=== PATIENT | female | born 1985 | race Caucasian/White ===

== ENCOUNTER 2017-04-02 07:47 | Inpatient (IN) | payer OTHER ==
[2017-04-02] MEDS ORDERED: Oxytocin in LR* 20 UNITS/1,000 ML BAG IVPB SCH ×2 (11:00→17:00)
[2017-04-02] MEDS ORDERED: OBEPIDURAL* 250 ML ONE (12:04)
[2017-04-02 12:32] LABS: Hematocrit 42 % (35-47); Hemoglobin 13.7 g/dl (12.0-16.0); Mean Corpuscular HGB Conc 32 g/dl (31-36); Mean Corpuscular Hemoglobin 28 pg (27-31); Mean Corpuscular Volume 87 fL (80-97); Red Blood Count 4.89 10^6/ul (4.0-5.4); Red Cell Distribution Width 14 % (10.5-15); White Blood Count 17.8 10^3/ul (3.5-10.8)
[2017-04-02 12:48] LABS: Add Diff/Slide Review? Slide Review Added; Comments Flag Yes
[2017-04-02] MEDS ORDERED: Phenylephrine IV* 40 MCG/ML 10 ML SYRINGE IV PUSH PRN ×2 (13:19)
[2017-04-02] MEDS ORDERED: Sodium Citrate/Citric Acid* 15 ML UDC PO PRN (13:19)
[2017-04-02] MEDS ORDERED: EPHEDrine (Pressors)* 50 MG/ML VIAL IV PUSH PRN ×2 (13:19)
[2017-04-02] MEDS ORDERED: Famotidine TAB* 20 MG PO PRN (13:19)
[2017-04-02] MEDS ORDERED: OBEPIDURAL* 250 ML EPIDURAL SCH (14:00)
[2017-04-02] MEDS ORDERED: ceFOXitin 2 GM IVPREMIX* 2 GM/50 ML BAG ONE (14:54)
[2017-04-02] MEDS ORDERED: Lidocaine 2% PF* 10 ML AMP ONE (15:01)
[2017-04-02] MEDS ORDERED: fentaNYL* 50 MCG/ML 2 ML VIAL (100 MCG VIAL) IV PRN (15:56)
[2017-04-02] MEDS ORDERED: Ondansetron INJ* 2 MG/ML VIAL IV PRN ×2 (15:56→16:07)
[2017-04-02] MEDS ORDERED: Ketorolac INJ* 30 MG/ML 1 ML VIAL IV PRN (15:56)
[2017-04-02] MEDS ORDERED: OXYTOCIN* 10 UNITS/ML 1 ML VIAL ONE ×2 (15:58→16:05)
[2017-04-02] MEDS ORDERED: Morphine PF AMP (0.5MG/ML)* 5 MG/10 ML AMP ONE (15:59)
[2017-04-02] MEDS ORDERED: Naloxone* 2 MG in NS 0.9% 250 ML* 250 ML IV PRN (16:07)
[2017-04-02] MEDS ORDERED: oxyCODONE/Acetamin 5/325 MG* TAB PO PRN (16:07)
[2017-04-02] MEDS ORDERED: HYDROcodone/ACETAMIN 5-325 MG* 1 TAB PO PRN (16:07)
[2017-04-02] MEDS ORDERED: Naloxone* 0.4 MG/ML 1 ML VIAL IV PRN (16:07)
[2017-04-02] MEDS ORDERED: diPHENhydraMINE IV* 50 MG/ML 1 ml VIAL (BENADRYL) IV PRN (16:07)
[2017-04-02] MEDS ORDERED: DiMENhydriNATE IV* 50 MG/ML VIAL IV PUSH PRN (16:07)
[2017-04-02] MEDS ORDERED: Witch Hazel PAD* JAR TOPICAL PRN (16:59)
[2017-04-02] MEDS ORDERED: Dibucaine 1% 28.35 GM TUBE PR PRN (16:59)
[2017-04-02] MEDS ORDERED: Glycerin ADULT SUPP PR PRN (16:59)
[2017-04-02] MEDS ORDERED: Acetaminophen TAB* 325 MG PO PRN (16:59)
[2017-04-02] MEDS: Ketorolac INJ* 30 MG/ML 1 ML VIAL IV PRN ×2 (17:30→23:37)
[2017-04-02] MEDS: Simethicone CHEW TAB* 80 MG PO SCH ×3 (18:27→22:02)
[2017-04-02] MEDS ORDERED: Lidocaine 1% MPF* 2 ML VIAL ONE (19:06)
[2017-04-02] MEDS: Docusate CAP* 100 MG PO SCH (22:01)
--- NOTE | 2017-04-03 02:11 | OP ---
DATE OF OPERATION: 04/02/17 - ROOM #103 DATE OF : 81 SURGEON: Edith Tracey MD ICT BUSINESS ANALYST: Toshia Rocha CNM ANESTHESIOLOGIST: Dr. Weir. ANESTHESIA: Epidural. PRE-OP DIAGNOSES: Intrauterine growth restriction, 38-6/7 weeks, category II heart tracing, remote from delivery. POST-OP DIAGNOSES: Intrauterine growth restriction, 38-6/7 weeks, category II heart tracing, remote from delivery, delivered. OPERATIVE PROCEDURE: Primary low transverse section. ESTIMATED BLOOD LOSS: 600 cc. URINE OUTPUT: 200 cc of yellow urine. FLUIDS: 1300 cc of crystalloid. FINDINGS: Revealed a vertex female infant with 's 9 at 1 minute, 9 at 5 minutes; weight was 5 pounds 14 ounces. No nuchal cord. Placenta was sclerotic and small disc, but cord had a normal appearance with 3 vessel. Normal-appearing tubes and ovaries. COMPLICATIONS: None apparent. DISPOSITION: Stable to recovery room. DESCRIPTION OF PROCEDURE: The patient was placed in dorsal lithotomy position. Abdomen was prepped and draped in a sterile standard fashion. Anesthesia was tested to appropriate level. Incision was made 2 fingerbreadths above the pubic symphysis. This was carried down through the fascia. Fascia was scored in the midline. Fascial incision was extended laterally and superiorly using curved Dominguez scissors. The fascia was from the rectus muscle with blunt and sharp dissection. The peritoneum was then entered sharply with Metzenbaum scissors. The peritoneal incision was extended bluntly. A bladder blade was inserted. The lower uterine segment was identified, tented up with an Allis, and incision was made with scalpel. This was carried down through the fluid and fluid was noted to be clear. A lower uterine segment incision was then extended laterally and superiorly using bandage scissors. The infant was delivered LOT, normal nuchal cord, anterior, then posterior shoulder delivered. Cord was then doubly clamped and cut. The was vigorous . The infant was handed off to awaiting lobby concierge. Appropriate cord blood was obtained. Placenta was then manually extracted and noted to have a small placental base and to be sclerotic. The cord was noted to have normal aperture with 3 vessels in nature. The uterus was exteriorized. The cavity was wiped clean and noted to be free of any membranes or placental tissue. Normal tubes and ovaries were noted. The incision itself was then reapproximated in 2 layers , 1st layer running locked, 2nd layer running imbricated 0 Vicryl. Uterus was returned intra-abdominally. Colic gutters were lavaged. Peritoneum was then grasped with Rosaura and the peritoneum was reapproximated using 2-0 Vicryl in a running fashion. Subfascial areas were visualized and noted to be hemostatic and the fascia was then reapproximated using 0 Vicryl x2 in a running fashion. Subcuticular fat stitch was applied using 2-0 Vicryl in an interrupted fashion. The skin was then reapproximated using 4-0 Vicryl in a subcuticular fashion and Mastisol and Steri's were applied. All sponge, needle, and instrument blade counts were correct throughout the case. The patient tolerated the procedure well and went to recovery room in stable condition. [id number]/[facility] #: [id number] RYAN
[2017-04-03] MEDS: Ketorolac INJ* 30 MG/ML 1 ML VIAL IV PRN ×2 (05:46→12:10)
[2017-04-03 06:19] LABS: Hematocrit 37 % (35-47); Hemoglobin 11.9 g/dl (12.0-16.0); Mean Corpuscular HGB Conc 32 g/dl (31-36); Mean Corpuscular Hemoglobin 28 pg (27-31); Mean Corpuscular Volume 86 fL (80-97); Mean Platelet Volume 10 um3 (7.4-10.4); Red Blood Count 4.28 10^6/ul (4.0-5.4); Red Cell Distribution Width 13 % (10.5-15); White Blood Count 17.1 10^3/ul (3.5-10.8)
[2017-04-03] MEDS ORDERED: oxyCODONE/Acetamin 5/325 MG* TAB PO PRN (08:00)
[2017-04-03] MEDS: Simethicone CHEW TAB* 80 MG PO SCH ×4 (08:58→22:27)
[2017-04-03] MEDS: oxyCODONE/Acetamin 5/325 MG* TAB PO PRN ×4 (08:58→22:26)
[2017-04-03] MEDS: Docusate CAP* 100 MG PO SCH ×3 (08:58→22:27)
[2017-04-03] MEDS ORDERED: Ferrous Gluconate TAB* 324 MG TAB PO SCH (09:00)
[2017-04-03] MEDS: Ibuprofen TAB* 600 MG PO PRN (18:16)
[2017-04-04 07:58] VITALS: BP 128/80
[2017-04-04] MEDS: Simethicone CHEW TAB* 80 MG PO SCH (09:15)
[2017-04-04] MEDS: Docusate CAP* 100 MG PO SCH (09:15)
[2017-04-04] MEDS: Ibuprofen TAB* 600 MG PO PRN (12:06)
[2017-04-04] MEDS: oxyCODONE/Acetamin 5/325 MG* TAB PO PRN (12:07)
== END 2017-04-04 13:49 | disposition home or self-care (01) | DRG 540 ==
LOC: MCHOBOUT 07:47 → MCHOB 10:14
PROVIDERS: ADMIT Obstetrics & Gynecology; ATTEND Obstetrics & Gynecology
PROC: 10D00Z1 Extraction of Products of Conception, Low, Open Approach (ICD-10-PCS; principal; 2017-04-02 15:13)
DX: O76 Abnormality in fetal heart rate and rhythm complicating labor and delivery (principal); O36.5930 Maternal care for other known or suspected poor fetal growth, third trimester, not applicable or unspecified; Z3A.38 38 weeks gestation of pregnancy; Z37.0 Single live birth
CPT/HCPCS: 36415; 85025; 86850; 86900; 86901; 88307; A9270-GY; J0694; J1885; J2001; J2590